=== PATIENT | male | born 1955 ===

== ENCOUNTER 2017-12-09 15:16 | Outpatient (CLI) | payer OTHER, SELFPAY ==
[~2017-12-09] VITALS: Ht 170.2 cm; Wt 55.8 kg
== END 2017-12-09 15:30 | disposition home or self-care (01) ==
LOC: OFIC 805 15:16
DX: H90.41 Sensorineural hearing loss, unilateral, right ear, with unrestricted hearing on the contralateral side (principal); S00.431A Contusion of right ear, initial encounter; X58.XXXA Exposure to other specified factors, initial encounter; Y93.89 Activity, other specified; Y92.89 Other specified places as the place of occurrence of the external cause; Y99.8 Other external cause status

== ENCOUNTER 2017-12-30 12:39 | Outpatient (CLI) | payer OTHER, SELFPAY ==
[~2017-12-30] VITALS: Ht 152.4 cm; Wt 55.8 kg
== END 2017-12-30 13:00 | disposition home or self-care (01) ==
LOC: OFIC 805 12:39
DX: H90.3 Sensorineural hearing loss, bilateral (principal)